=== PATIENT | female | born 1960 | race Two or more races ===

== ENCOUNTER → 2019-02-06 08:04 | Outpatient (CLI) | payer SELFPAY ==
[2019-02-06 09:17] LABS: T4 Total, Thyroxin 6.5 ug/dL (4.8-13.9); Thyroid Stim Hormone (TSH) 4.11 uIU/mL (0.358-3.74)
[2019-02-08 09:37] LABS: T3 Total - Triiodothyronine 1.07 ng/mL (0.6-1.81)
== END ==
DX: E05.00 Thyrotoxicosis with diffuse goiter without thyrotoxic crisis or storm (principal)
CPT/HCPCS: 36415; 84436; 84443; 84480